=== PATIENT | female | born 1935 | race Caucasian/White ===

== ENCOUNTER 2016-12-26 20:16 | Emergency (ER) | payer OTHER, MEDICAID ==
--- NOTE | 2016-12-26 20:29 | EDPHY ---
H & P Time Seen by Provider: 12/26/16 20:25 HPI/ROS: CHIEF COMPLAINT: Fall HISTORY OF PRESENT ILLNESS: Patient is a 81-year-old female who presents to the emergency department after falling. She is in a prison. She recently arrived at the facility from the psychiatric center. Patient was fighting with her nurse about using a walker and she fell over backwards. She struck the back of her head. She did not lose consciousness. Bleeding is controlled. Patient complains of mild headache. She has no neck pain or back pain. She denies shortness of breath or chest pain. Patient has no other complaints. REVIEW OF SYSTEMS: My complete review of systems is negative except as mentioned in the HPI. Past Medical/Surgical History: Depression, anxiety, suicidal ideation, hypertension, hypothyroidism, esophageal obstruction, GERD, dyskinesia Social History: The patient is a prison resident. She does not smoke. Physical Exam: Vitals noted GENERAL: No acute distress, alert. HEAD: patient has a right posterior hematoma. There is a stellate 2 cm laceration. This is irregular. There is no palpable crepitus. EYES: PERRLA, EOMI, normal to inspection. ENT: Airway intact, no dental or oral injury, no malocclusion, no hemotympanum , normal external examination. NECK: The trachea is midline. There is no crepitus. The C-spine is nontender. C-collar in place RESPIRATORY: Clear to auscultation bilaterally, no rales, rhonchi or wheezing. There is no crepitus or palpable rib fractures. CVS: Regular rate and rhythm, no rubs, murmurs, or gallops. ABDOMEN: Soft, nontender, nondistended, normal bowel sounds, no bruising or abrasions. Pelvis: Stable. No tenderness palpation. Hips full range of motion. BACK: Normal to inspection, no spinal tenderness, no spinal step off, no notable bruising or abrasions. SKIN: Normal color, warm, dry. No pallor or diaphoresis. EXTREMITIES: Right upper extremity: Atraumatic. No visible signs of trauma. No tenderness palpation. Neurovascular intact distally. Left upper extremity: Atraumatic. No visible signs of trauma. No tenderness palpation. Neurovascular intact distally. Right lower extremity: Atraumatic. No visible signs of trauma. No tenderness palpation. Neurovascular intact distally. Left lower extremity: Atraumatic. No visible signs of trauma. No tenderness palpation. Neurovascular intact distally. Atraumatic, neurovascularly intact distally in all extremities, pelvis is stable , hips with full range of motion, moves all extremities freely. NEURO/PSYCH: Alert and oriented x 2 (baseline per EMS who discussed this with nursing staff), GCS 14, normal mood and affect, normal motor sensory exam. Constitutional: Initial Vital Signs Temperature (C) 36.7 C 12/26/16 20:20 Heart Rate 80 12/26/16 20:20 Respiratory Rate 18 12/26/16 20:20 Blood Pressure 154/104 H 12/26/16 20:20 O2 Sat (%) 92 12/26/16 20:20 O2 Delivery Mode Room Air Allergies/Adverse Reactions: CHAR Inhibitors Allergy (Verified 12/26/16 20:35) atorvastatin Allergy (Verified 12/26/16 20:35) benztropine Allergy (Verified 12/26/16 20:35) carboxymethylcellulose sodium [From Refresh Optive Advanced] Allergy (Verified 12/26/16 20:35) codeine Allergy (Verified 12/26/16 20:35) dipyridamole Allergy (Verified 12/26/16 20:35) fluoxetine Allergy (Verified 12/26/16 20:35) glycerin* [From Refresh Optive Advanced] Allergy (Verified 12/26/16 20:35) Penicillins Allergy (Verified 12/26/16 20:35) polysorbate 80 [From Refresh Optive Advanced] Allergy (Verified 12/26/16 20:35) risperidone Allergy (Verified 12/26/16 20:35) simvastatin Allergy (Verified 12/26/16 20:35) Home Medications: Medication Instructions Recorded Amantadine HCl 12/26/16 Colace 12/26/16 ECOTRIN 12/26/16 GABAPENTIN 12/26/16 Levothyroxine 12/26/16 Lidoderm 5% Patch (*) 12/26/16 Loratadine 12/26/16 Meloxicam 12/26/16 Norvasc 5 mg (*) 12/26/16 PARoxetine HCL 12/26/16 Pantoprazole Sodium 12/26/16 Pravastatin Sodium 12/26/16 Systane Ultra 0.4-0.3% Eye Drp 12/26/16 traMADol 12/26/16 Medical Decision Making ED Course/Re-evaluation: In the emergency department I met EMS on arrival. I took report from the tool shaper set up operator. I discussed the plan with the patient. She is cooperative. Head CT/C-spine CT: No acute intracranial hemorrhage. Hematoma. Degenerative change in the C-spine. No acute injury. Please refer the dictated report by Dr. Braulio Banda. I discussed the results with the patient. I answered all her questions. Her C- collar was removed. Differential Diagnosis: My differential includes but is not limited to subarachnoid hemorrhage, subdural hematoma, epidural hematoma, CVA, skull fracture, contusion, laceration , dementia - Data Points Laboratory Results: Laboratory Results 12/26/16 20:50 12/26/16 20:50 12/26/16 12/26/16 12/26/16 20:50 20:50 20:50 WBC 5.44 10^3/uL 10^3/uL (3.80-9.50) RBC 4.05 10^6/uL L 10^6/uL (4.18-5.33) Hgb 13.2 g/dL g/dL (12.6-16.3) Hct 39.8 % % (38.0-47.0) MCV 98.3 fL fL (81.5-99.8) MCH 32.6 pg pg (27.9-34.1) MCHC 33.2 g/dL g/dL (32.4-36.7) RDW 12.4 % % (11.5-15.2) Plt Count 172 10^3/uL 10^3/uL (150-400) MPV 11.3 fL fL (8.7-11.7) Neut % (Auto) 55.2 % % (39.3-74.2) Lymph % (Auto) 27.8 % % (15.0-45.0) [place] % (Auto) 9.2 % % (4.5-13.0) Eos % (Auto) 5.9 % % (0.6-7.6) Baso % (Auto) 1.5 % % (0.3-1.7) Nucleat RBC Rel Count 0.0 % % (0.0-0.2) Absolute Neuts (auto) 3.01 10^3/uL 10^3/uL (1.70-6.50) Absolute Lymphs (auto) 1.51 10^3/uL 10^3/uL (1.00-3.00) Absolute Monos (auto) 0.50 10^3/uL 10^3/uL (0.30-0.80) Absolute Eos (auto) 0.32 10^3/uL 10^3/uL (0.03-0.40) Absolute Basos (auto) 0.08 10^3/uL 10^3/uL (0.02-0.10) Absolute Nucleated RBC 0.00 10^3/uL 10^3/uL (0-0.01) Immature Gran % 0.4 % % (0.0-1.1) Immature Gran # 0.02 10^3/uL 10^3/uL (0.00-0.10) PT 13.4 SEC SEC (12.0-15.0) INR 1.03 (0.83-1.16) APTT 32.0 SEC SEC (23.0-38.0) Sodium 129 mEq/L L mEq/L (134-144) Potassium 4.0 mEq/L mEq/L (3.5-5.2) Chloride 94 mEq/L L mEq/L (97-110) Carbon Dioxide 26 mEq/l mEq/l (22-31) Anion Gap 9 mEq/L mEq/L (8-16) BUN 15 mg/dL mg/dL (7-23) Creatinine 0.7 mg/dL mg/dL (0.6-1.0) Estimated GFR > 60 Glucose 117 mg/dL H mg/dL (70-100) Calcium 9.5 mg/dL mg/dL (8.5-10.4) Departure - Departure Condition: Good Referrals: TALI PATE [Primary Care Provider] - As per Instructions
[2016-12-26 20:45] VITALS: RESP 18; O2SAT 92
[2016-12-26 21:01] LABS: % IMMATURE GRANULYOCYTES 0.4 % (0.0-1.1); ABSOLUTE IMMATURE GRANULOCYTES 0.02 10^3/uL (0.00-0.10); ADD DIFF? NO; ADD MORPH? NO; ADD SCAN? NO; ATYPICAL LYMPHOCYTE FLAG 0 (0-99); FRAGMENT RBC FLAG 0 (0-99); HEMATOCRIT 39.8 % (38.0-47.0); HEMOGLOBIN 13.2 g/dL (12.6-16.3); LEFT SHIFT FLG 0 (0-99); LIPEMIA HEMOLYSIS FLAG 80 (0-99); MEAN CELL HEMOGLOBIN 32.6 pg (27.9-34.1); MEAN CELL HEMOGLOBIN CONCENTR. 33.2 g/dL (32.4-36.7); MEAN CELL VOLUME 98.3 fL (81.5-99.8); MEAN PLATELET VOLUME 11.3 fL (8.7-11.7); PLATELET CLUMPS FLAG 0 (0-99); PLATELET COUNT 172 10^3/uL (150-400); RED BLOOD CELL COUNT 4.05 10^6/uL (4.18-5.33); RED CELL DISTRIBUTION WIDTH 12.4 % (11.5-15.2)
[2016-12-26 21:15] LABS: ANION GAP 9 mEq/L (8-16); CALCIUM 9.5 mg/dL (8.5-10.4); CARBON DIOXIDE 26 mEq/l (22-31); CHLORIDE 94 mEq/L (97-110); CREATININE 0.7 mg/dL (0.6-1.0); GLOMERULAR FILTRATION RATE > 60; GLUCOSE 117 mg/dL (70-100); INR 1.03 (0.83-1.16); PROTIME(PATIENT) 13.4 SEC (12.0-15.0); SODIUM 129 mEq/L (134-144)
[2016-12-26 23:22] VITALS: BP 193/101; PULSE 90; TEMP 97.9
== END 2016-12-27 00:16 | disposition home or self-care (01) ==
PROC: 0HQ0XZZ Repair Scalp Skin, External Approach (ICD-10-PCS; principal; 2016-12-26)
DX: S01.01XA Laceration without foreign body of scalp, initial encounter (principal); I10 Essential (primary) hypertension; W01.198A Fall on same level from slipping, tripping and stumbling with subsequent striking against other object, initial encounter

== ENCOUNTER → 2017-03-11 | Outpatient (CLI) | payer OTHER, MEDICAID | LOC: FIMAGING 12:51 | PROVIDERS: ATTEND Psychiatry & Neurology Neurology | DX: M50.320 Other cervical disc degeneration, mid-cervical region, unspecified level (principal); M50.321 Other cervical disc degeneration at C4-C5 level; M50.322 Other cervical disc degeneration at C5-C6 level; M50.323 Other cervical disc degeneration at C6-C7 level; M43.12 Spondylolisthesis, cervical region ==

== ENCOUNTER 2017-05-01 05:38 | Emergency (ER) | payer OTHER, MEDICAID ==
[2017-05-01] MEDS ORDERED: NS 500 ML IV ONE (05:43)
--- NOTE | 2017-05-01 05:45 | EDPHY ---
H & P Source: Patient, EMS - Medical/Surgical History Hx Asthma: No Hx Chronic Respiratory Disease: No Hx Diabetes: No Hx Cardiac Disease: No Hx Renal Disease: No Hx Cirrhosis: No Hx Alcoholism: No Hx HIV/AIDS: No Hx Splenectomy or Spleen Trauma: No Other PMH: depressive,anxiety htn,hypothyroid,. reflux wtih obstruction - Social History Smoking Status: Never smoked HPI/ROS: HPI CHIEF COMPLAINT: Chest pain HISTORY OF PRESENT ILLNESS: This patient is 82-year-old female she presents to the ER by EMS from [facility] with chest pain. Patient reports to me that around 445 approximately an hour ago she woke up with some left-sided chest discomfort. She describes a dull ache pressure sensation left side of her chest radiates to her left scapula. She denies jaw pain. Denies neck pain. Denies focal weakness or numbness or tingling. Denies nausea or sweatiness. She was given full-dose aspirin by [facility] staff and 911 was called. EMS arrived and evaluated her and gave her nitroglycerin. She does report to me that the nitroglycerin improved her chest discomfort. She states initially was 7/10 it is now better but will quantify. She denies ever having a heart attack. Denies PE but does endorse history of DVT. Past Medical History: Hypertension, GERD, esophageal obstruction, esophagitis, dyskinesia, depression, anxiety, thyroid disease, DVT, ?Bipolar d.o Past Surgical History: Breast surgery, Komal fundoplication Social History: Lives at [facility], denies illicit drugs alcohol tobacco. Family History: Noncontributory ROS REVIEW OF SYSTEMS: A comprehensive 10 point review of systems is otherwise negative aside from elements mentioned in the history of present illness. Exam Constitutional appears nontoxic, triage nursing summary reviewed, vital signs reviewed, awake/alert. Hard of hearing. Eyes normal conjunctivae and sclera, EOMI, PERRLA. HENT normal inspection, atraumatic, moist mucus membranes, no epistaxis, neck supple/ no meningismus, no raccoon eyes. Respiratory clear to auscultation bilaterally, normal breath sounds, no respiratory distress, no wheezing. Cardiovascular rate normal, regular rhythm, no murmur, no edema, distal pulses normal. Gastrointestinal soft, non-tender, no rebound, no guarding, normal bowel sounds, no distension, no pulsatile mass. Genitourinary no CVA tenderness. Musculoskeletal no midline vertebral tenderness, full range of motion, no calf swelling, no tenderness of extremities, no meningismus, good pulses, neurovascularly intact. Skin pink, warm, & dry, no rash, skin atraumatic. Neurologic dyskinesia present, awake, alert and oriented x 3, AAOx3, moves all 4 extremities equally, motor intact, sensory intact, CN II-XII intact, normal cerebellar, normal vision, normal speech. Psychiatric normal mood/affect. Heme/Lymph/Immune no lymphadenopathy. Differential diagnosis includes but is not limited to: ACS, atypical chest pain , pneumothorax, pneumonia, pulmonary embolism, aortic dissection, congestive heart failure, tumor, musculoskeletal pain, esophageal pain, GERD, peptic ulcer disease, pancreatitis Medical Decision Making: Plan for this patient full cardiac cath lab manager, IV establishment, obtain EKG and troponin, chest x-ray morphine for pain control re -evaluate. Re-evaluation: EKG interpretation by me on record in [employer] system. Impression time of EKG 5:45 a.m., sinus rhythm rate of 83 there is a left anterior fascicular block present. Motion artifact seen in leads 2 3 AVF.(due to movement) Will need repeat EKG. However this EKG on appreciate acute ischemia. EKG interpretation by me on record in [employer] system. Impression time of EKG 5:57 a.m. this is a repeat EKG, sinus rhythm rate of 81 LVH present. Left anterior fascicular block present. Q-waves present 2 3 AVF otherwise I do not appreciate acute ischemia. ED x-ray chest one view reviewed. Cardiomegaly present. Calcified aortic knob. Otherwise unremarkable chest x-ray. Image interpreted by myself. 0621AM: I did re-evaluate this patient at this time. She tells me that she is chest pain-free after the morphine. She is resting comfortably. Stable vital signs. EKG nonischemic. Troponin pending at this time. Plan for this patient she will need to be admitted to the hospital for ACS rule out. 0634AM: Patient is sleeping. Chest pain-free. Agrees for admission for ACS rule out. (José Miguel Munoz) Constitutional: Initial Vital Signs Temperature (C) 36.6 C 05/01/17 05:45 Heart Rate 82 05/01/17 05:45 Respiratory Rate 16 05/01/17 05:45 Blood Pressure 111/76 05/01/17 05:45 O2 Sat (%) 93 05/01/17 05:45 O2 Delivery Mode Nasal Cannula O2 (L/minute) 1 Allergies/Adverse Reactions: CHAR Inhibitors Allergy (Verified 05/01/17 05:44) atorvastatin Allergy (Verified 05/01/17 05:44) benztropine Allergy (Verified 05/01/17 05:44) carboxymethylcellulose sodium [From Refresh Optive Advanced] Allergy (Verified 05/01/17 05:44) codeine Allergy (Verified 05/01/17 05:44) dipyridamole Allergy (Verified 05/01/17 05:44) fluoxetine Allergy (Verified 05/01/17 05:44) glycerin* [From Refresh Optive Advanced] Allergy (Verified 05/01/17 05:44) Penicillins Allergy (Verified 05/01/17 05:44) polysorbate 80 [From Refresh Optive Advanced] Allergy (Verified 05/01/17 05:44) risperidone Allergy (Verified 05/01/17 05:44) simvastatin Allergy (Verified 05/01/17 05:44) Home Medications: Medication Instructions Recorded Amantadine HCl [Amantadine] 100 mg PO TID@08,12,16 12/26/16 Aspirin EC [Aspirin EC 81 mg (*)] 81 mg PO DAILY 12/26/16 Docusate Sodium [Colace 100 MG (*)] 200 mg PO DAILY 12/26/16 Gabapentin [Neurontin 100 MG (*)] 100 mg PO HS 12/26/16 Levothyroxine [Synthroid 100 mcg 100 mcg PO DAILY06 12/26/16 (*)] Lidocaine 5% [Lidoderm 5% Patch 1 ea TD DAILY 12/26/16 (*)] Loratadine 10 mg PO HS 12/26/16 PARoxetine HCL [Paxil] 40 mg PO DAILY 12/26/16 Pantoprazole Sodium [Protonix 40mg 80 mg PO BIDMEAL 12/26/16 (*)] Pravastatin Sodium [Pravachol] 10 mg PO HS 12/26/16 Propylene Glycol/Peg 400/Pf 1 each OP QID 12/26/16 [Systane 0.3-0.4% Eye Drops] amLODIPine BESYLATE [Norvasc 5 mg 5 mg PO DAILY 12/26/16 (*)] traMADol [Ultram 50 mg (*)] 50 mg PO BID PRN 12/26/16 Acetaminophen [Tylenol ES 500 mg 1,000 mg PO DAILY 05/01/17 (*)] Acetaminophen [Tylenol ES 500 mg 500 mg PO BID@12,16 05/01/17 (*)] Fluticasone Nasal [Flonase Nasal 2 sprays NASAL DAILY 05/01/17 [place] (RX)] Herbals/Supplements -Info Only 1 ea PO DAILY 05/01/17 Ibuprofen [Motrin (*)] 200 mg PO TID@08,13,20 05/01/17 Multivitamins [Multivitamin (*)] 1 each PO DAILY 05/01/17 Polyethylene Glycol 3350 [Miralax 17 gm PO DAILY PRN 05/01/17 17 gm (*)] guaiFENesin [Mucinex 600 MG (*)] 600 mg PO BID 05/01/17 traZODone [traZODONE 50MG (*)] 50 mg PO HS 05/01/17 Medical Decision Making ED Course/Re-evaluation: This patient was turned over to sc at shift change. Dr. Munoz thought that the patient was being admitted however Dr. Segundo came down and thought it would be best to return the patient back to [facility] if her 3rd troponin was negative. I zachery a troponin at 10:00 a.m. which was also negative. We will send the patient home to follow up as an outpatient according to Dr. Segundo (Dashawn Blood) - Data Points Laboratory Results: Laboratory Results 05/01/17 05:45 05/01/17 05:45 Medications Given: Discontinued Medications Enoxaparin Sodium (Lovenox) 40 mg SC DAILY [facility] Stop: 10/28/17 08:59 Last Admin: 05/01/17 10:45 Dose: Not Given Sodium Chloride (Ns) 500 mls @ 0 mls/hr IV EDNOW ONE; Wide Open PRN Reason: Protocol Stop: 05/01/17 05:44 Last Admin: 05/01/17 06:01 Dose: 500 mls Ketorolac Tromethamine (Toradol) 15 mg IVP ONCE ONE Stop: 05/01/17 08:02 Last Admin: 05/01/17 09:41 Dose: 15 mg Morphine Sulfate (Morphine) 2 mg IVP EDNOW ONE Stop: 05/01/17 06:01 Last Admin: 05/01/17 06:05 Dose: 2 mg Ondansetron HCl (Zofran) 4 mg IVP EDNOW ONE Stop: 05/01/17 06:01 Last Admin: 05/01/17 06:05 Dose: 4 mg Departure - Departure Disposition: [facility] Inpatient Acute Clinical Impression: Chest pain Qualifiers: Chest pain type: unspecified Qualified Code(s): R07.9 - Chest pain, unspecified Condition: Good Referrals: JUSTIN TARIQ [Primary Care Provider] - As per Instructions
[2017-05-01 05:51] VITALS: RESP 16
[2017-05-01 05:52] LABS: % IMMATURE GRANULYOCYTES 0.3 % (0.0-1.1); ABSOLUTE IMMATURE GRANULOCYTES 0.03 10^3/uL (0.00-0.10); ADD DIFF? NO; ADD MORPH? NO; ADD SCAN? NO; ATYPICAL LYMPHOCYTE FLAG 0 (0-99); FRAGMENT RBC FLAG 0 (0-99); HEMATOCRIT 42.1 % (38.0-47.0); HEMOGLOBIN 13.9 g/dL (12.6-16.3); LEFT SHIFT FLG 0 (0-99); LIPEMIA HEMOLYSIS FLAG 80 (0-99); MEAN CELL HEMOGLOBIN 32.4 pg (27.9-34.1); MEAN CELL VOLUME 98.1 fL (81.5-99.8); MEAN PLATELET VOLUME 10.6 fL (8.7-11.7); PLATELET CLUMPS FLAG 10 (0-99); PLATELET COUNT 232 10^3/uL (150-400); RED BLOOD CELL COUNT 4.29 10^6/uL (4.18-5.33)
--- NOTE | 2017-05-01 05:59 | CPEKG ---
Heart Rate: 81 RR Interval: 741 P-R Interval: 156 QRSD Interval: 94 QT Interval: 392 QTC Interval: 455 P [place]: 0 QRS [place]: -53 T Wave [place]: 54 EKG Severity - ABNORMAL ECG - EKG Impression: SINUS RHYTHM EKG Impression: LEFT ANTERIOR FASCICULAR BLOCK EKG Impression: PROBABLE LEFT VENTRICULAR HYPERTROPHY Electronically Signed By: José Miguel Munoz 01-May-2017 06:23:18
[2017-05-01] MEDS ORDERED: ONDANSETRON 4 MG/2 ML VIAL IVP ONE (06:00)
[2017-05-01 06:01] LABS: INR 0.98 (0.83-1.16); PROTIME(PATIENT) 12.9 SEC (12.0-15.0)
[2017-05-01 06:02] LABS: APTT 32.7 SEC (23.0-38.0)
[2017-05-01 06:05] LABS: ALANINE AMINOTRANSFERASE 30 IU/L (9-52); ALBUMIN 3.9 g/dL (3.5-5.0); ALKALINE PHOSPHATASE 88 IU/L (38-126); ANION GAP 11 mEq/L (8-16); ASPARTATE AMINOTRANSFERASE 20 IU/L (14-46); BILIRUBIN,TOTAL 0.6 mg/dL (0.1-1.4); BILIRUBIN-CONJUGATED 0.1 mg/dL (0.0-0.5); BILIRUBIN-UNCONJUGATED 0.5 mg/dL (0.0-1.1); CALCIUM 9.7 mg/dL (8.5-10.4); CARBON DIOXIDE 27 mEq/l (22-31); CHLORIDE 95 mEq/L (97-110); CREATININE 0.7 mg/dL (0.6-1.0); GLOMERULAR FILTRATION RATE > 60; GLUCOSE 87 mg/dL (70-100); POTASSIUM 4.3 mEq/L (3.5-5.2); SODIUM 133 mEq/L (134-144); TOTAL PROTEIN 6.7 g/dL (6.3-8.2)
[2017-05-01 06:17] LABS: CREATINE KINASE-MB FRACTION 2.71 ng/mL (0.00-3.19); TROPONIN I < 0.012 ng/mL (0.000-0.034)
[2017-05-01] MEDS ORDERED: ONDANSETRON DISINTEGRATING 4 MG TAB PO PRN (07:06)
[2017-05-01] MEDS ORDERED: ONDANSETRON 4 MG/2 ML VIAL IVP PRN (07:06)
[2017-05-01] MEDS ORDERED: ACETAMINOPHEN 325 MG TAB PO PRN (07:06)
[2017-05-01] MEDS ORDERED: KETOROLAC 15 MG/1 ML SDV IVP ONE (08:01)
[2017-05-01] MEDS ORDERED: ENOXAPARIN 40 MG/0.4 ML SYR SC SCH (09:00)
--- NOTE | 2017-05-01 09:08 | GHP ---
[f rep st] HISTORY AND PHYSICAL DATE OF ADMISSION: 05/01/2017 CHIEF COMPLAINT: Chest pain. HISTORY OF PRESENT ILLNESS: This is an 82-year-old female, who is a resident at a nearby [facility], who presents with sudden onset of left-sided chest pain that she describes as sharp that woke he r up from sleep at approximately 5 a.m. The patient reports having a week of a preceding upper resp iratory infection thought potentially bronchitis with some runny nose and respiratory symptoms. No fevers, no chills. Has been evaluated by the [facility] physician and treated. The patient repor ts this sharp pain on the left side of her chest made worse by moving, not worse with exertion, not specifically associated with shortness of breath, lightheadedness, palpitations. The patient descri bes no history of chest pain or shortness of breath limiting her activity, preceding her presentatio n to the emergency department. PAST MEDICAL HISTORY: 1. Recent diagnosis hypertension. 2. Severe depression. 3. Mild cognitive impairment. 4. Gastroesophageal reflux disease. 5. History of breast cancer, status post mastectomy. 6. Osteoarthritis. SOCIAL HISTORY: Negative for tobacco, alcohol or illicit drugs. FAMILY HISTORY: Patient is not positive. She left home when she was young but believes that her au nt had a history of a stroke with hypertension. REVIEW OF SYSTEMS: A 10-point review of systems is negative with the exception of that reported in the HPI. PHYSICAL EXAMINATION: VITAL SIGNS: Blood pressure 108/73, heart rate 79, respiratory rate 16, 95% on room air, 36.6. GENERAL: This is a healthy-appearing, elderly female in no acute distress. ARJUN NT: Notable for moist mucous membranes. Eye exam is negative for any icterus. CARDIAC: Patient i s regular rate and rhythm. A quiet systolic murmur is heard. PULMONARY: Good respiratory effort. Clear to auscultation bilaterally. GASTROINTESTINAL: The patient's abdomen is soft. She has posi tive bowel sounds and is nontender in all 4 quadrants. MUSCULOSKELETAL: Shows trace symmetric bila teral lower extremity edema. SKIN: Exam is negative for any rashes. NEUROLOGIC: She is alert and oriented x3. I do note lip-smacking movements, consistent with dystonia. PSYCHIATRIC: She is head cook perative on interview and examination. DATA: White count 9. Troponin less than 0.012. BNP 497. Sodium 133, potassium 4.3. EKG, which I personally reviewed and interpreted, shows sinus rhythm, normal axis, normal intervals. No acute ST-T changes. Chest x-ray, which I personally reviewed and interpreted, shows no acute infiltrates or edema. ASSESSMENT AND PLAN: This is an 82-year-old female, presenting with chest pain. 1. Acute chest pain. The patient's pain began abruptly this morning. She describes it as sharp an d stabbing. On my examination with palpation of the chest, I am able to exactly reproduce the pain that prompted her evaluation in the emergency department. I have low suspicion, based on her lack o f symptoms otherwise consistent with cardiac disease, that this is ischemia related. Will rapid cyc le troponins, next check at 5 hours, and if negative would recommend the patient being discharged ba ck to her [facility] facility without additional risk stratification. Her creatinine is normal . Will give a trial dose of Toradol to see if it assists in pain control in the emergency departmen t. 2. Hypertension. Patient's blood pressures are well controlled on her outpatient medications. Donald l not make any changes to this. 3. Severe depression. Patient is on multiple outpatient agents for psychiatric care. Again, would not change these doses. 4. Gastroesophageal reflux disease. The patient did describe a slight burning component to the bekah n but was able to tease that out as her reflux. We will continue her high-dose PPI treatment. She is followed by Gastroenterology in the outpatient setting. 5. Prophylaxis with Lovenox. 6. Diet: Regular. DISPOSITION: I expect in less than 2 midnights. If the patient has a second troponin which is nega tive, believe she is safe for disposition. I discussed the case with the emergency room physician. Patient will be triaged for serial troponins. /[id number]/MODL
[2017-05-01] MEDS ORDERED: traMADol 50 MG TAB PO PRN (09:50)
[2017-05-01] MEDS ORDERED: POLYETHYLENE GLYCOL 3350 17 GM PKT PO PRN (09:50)
[2017-05-01 10:45] VITALS: O2SAT 97
[2017-05-01 11:07] VITALS: BP 118/85; PULSE 84; TEMP 97.3
--- NOTE | 2017-05-01 11:10 | CPEKG ---
Heart Rate: 83 RR Interval: 723 P-R Interval: 156 QRSD Interval: 92 QT Interval: 392 QTC Interval: 461 P [place]: -4 QRS [place]: -46 T Wave [place]: 73 EKG Severity - ABNORMAL ECG - EKG Impression: SINUS RHYTHM EKG Impression: LEFT ANTERIOR FASCICULAR BLOCK EKG Impression: CONSIDER LEFT VENTRICULAR HYPERTROPHY Electronically Signed By: Dashawn Blood 01-May-2017 13:20:33
[2017-05-01] MEDS ORDERED: NON-FORMULARY NEW DRUG (Propylene Glycol/Peg 400/Pf [Systane 0.3-0.4% Eye Drops] 1 EACH) OP SCH (12:00)
[2017-05-01] MEDS ORDERED: ACETAMINOPHEN 500 MG TAB PO SCH (12:00)
[2017-05-01] MEDS ORDERED: NON-FORMULARY NEW DRUG (Amantadine Hcl [Amantadine] 100 MG) PO SCH (12:00)
[2017-05-01] MEDS ORDERED: IBUPROFEN 200 MG TAB PO SCH (13:00)
[2017-05-01] MEDS ORDERED: PANTOPRAZOLE SODIUM 40 MG TAB PO SCH (18:00)
--- NOTE | 2017-05-01 19:38 | GDS ---
[f rep st] DISCHARGE SUMMARY DISCHARGE DIAGNOSIS: Chest pain. PHYSICAL EXAM: GENERAL: The patient is alert. VITAL SIGNS: Afebrile at 36.3, pulse 84, respirato ry rate 16, blood pressure is 118/85. I have seen and evaluated the patient. HOSPITAL COURSE: The patient is an 82-year-old female, who presents to the emergency room with comp laints of chest pain. She was evaluated and felt to have reproducible chest pain. Serial troponins were performed that were within normal limits. The patient's chest pain has resolved prior to disp osition. She has responded well to Toradol, and states that she has no further chest pain or compla ints. We have continued the patient's previously prescribed home medications for other chronic medi david conditions. She will be discharged to return to her assisted where she normally resides. I reviewed the patient's care with Dr. Edda Segundo, as well as Dr. Dashawn Blood. /[id number]/MODL
[2017-05-01] MEDS ORDERED: guaiFENesin 600 MG TAB.ER PO SCH (21:00)
[2017-05-01] MEDS ORDERED: PRAVASTATIN SODIUM 10 MG TAB PO SCH (21:00)
[2017-05-01] MEDS ORDERED: NON-FORMULARY NEW DRUG (Loratadine [Loratadine] 10 MG) PO SCH (21:00)
[2017-05-01] MEDS ORDERED: GABAPENTIN 100 MG CAP PO SCH (21:00)
[2017-05-01] MEDS ORDERED: traZODone 50 MG TAB PO SCH (21:00)
[2017-05-02] MEDS ORDERED: LEVOTHYROXINE 100 MCG TAB PO SCH (06:00)
[2017-05-02] MEDS ORDERED: NON-FORMULARY NEW DRUG (Paroxetine Hcl [Paxil] 40 MG) PO SCH (09:00)
[2017-05-02] MEDS ORDERED: LIDOCAINE 5% 1 EA PATCH TD SCH (09:00)
[2017-05-02] MEDS ORDERED: ACETAMINOPHEN 500 MG TAB PO SCH (09:00)
[2017-05-02] MEDS ORDERED: Herbals/Supplements -Info Only PO SCH (09:00)
[2017-05-02] MEDS ORDERED: DOCUSATE SODIUM 100 MG CAP PO SCH (09:00)
[2017-05-02] MEDS ORDERED: FLUTICASONE NASAL 120 SPRAYS/16 GM MDI EACHNARE SCH (09:00)
[2017-05-02] MEDS ORDERED: amLODIPine BESYLATE 5 MG TAB PO SCH (09:00)
[2017-05-02] MEDS ORDERED: ASPIRIN EC 81 MG TAB PO SCH (09:00)
[2017-05-02] MEDS ORDERED: MULTIVITAMINS 1 EACH TAB PO SCH (09:00)
== END 2017-05-01 12:35 | disposition still patient (30) ==
LOC: EDUNIT# → UNDOADMOB 06:27
DX: R07.9 Chest pain, unspecified (principal); I10 Essential (primary) hypertension; E86.9 Volume depletion, unspecified; Z79.82 Long term (current) use of aspirin
CPT/HCPCS: 71010; 93005; 96361; 96374; 96375; 99285; J1650; J1885; J2405